=== PATIENT | male | born 1960 | race Caucasian/White ===

== ENCOUNTER 2022-09-26 03:00 | Inpatient (IN) | payer OTHER, SELFPAY ==
[2022-09-26] VITALS (13 sets, daily range): BP systolic 121–190; BP diastolic 72–103; PULSE 64–85; RESP 16–22; TEMP 36.3–36.9; O2SAT 90–99; BMI 37.5
--- NOTE | 2022-09-26 03:05 | XRR_ITS ---
PROCEDURE INFORMATION: Exam: XR Right Foot Exam date and time: 09/26/2022 3:11 AM Age: 62 years old Clinical indication: Injury or trauma; Work related; Crushing; Toes; Right lesser toe(s); Patient HX: Patient sustained a crush injury to digits of RT foot from a pallet christina. TECHNIQUE: Imaging protocol: Radiologic exam of the Right foot. Views: 3 or more views. AP Oblique Lateral COMPARISON: No relevant prior studies available. FINDINGS: Bones/joints: Comminuted right 3rd toe distal phalanx tuft region fracture is seen with 0.2 cm distraction of the fracture fragments and 0.2 cm proximal displacement. There is associated adjacent soft tissue irregularity and swelling. Recommend correlation with clinical findings of open fracture. Mild toe interphalangeal joint and 1st metatarsophalangeal joint space narrowing, suggestive of osteoarthritic change. Soft tissues: No radiopaque foreign bodies. Notes: If there is further concern, recommend follow-up radiographs or MRI for complete assessment. XR/XR foot RT min 3V* [id number] IMPRESSION: Comminuted, mildly displaced right 3rd toe distal phalanx tuft region fracture, as noted above. Associated adjacent soft tissue irregularity and swelling. Recommend correlation with clinical findings of open fracture.
--- NOTE | 2022-09-26 03:24 | W.ED.TRAUMA ---
HPI - Trauma General: Chief Complaint: Trauma Stated Complaint: CRUSHED TOE Time Seen by Provider: 09/26/22 03:00 Source: patient and EMS Mode of arrival: EMS Limitations: no limitations History of Present Illness: 62-year-old male who is here patient states he was working tonight at [facility] [employer] and had a large 4 pellet device run over his right foot. He does have a large laceration to the underside of his right middle toe with likely fracture patient was given Ancef in route patient does have neuropathy he denies any pain currently. Associated symptoms: Denies abdominal pain, back pain, chest pain, chills, dental pain, fever(s), headache(s), nausea or vomiting Review of Systems Const: Denies: fever(s), chills, body aches or change in appetite Eyes: Denies: blurry vision or eye discomfort ENMT: Denies: throat pain or dental pain Card: Denies: chest pain Resp: Denies: dyspnea GI: Denies: abdominal pain, nausea, vomiting or diarrhea : Denies: dysuria Musc: Denies: neck pain or back pain Skin/Breast: Denies: rash Neuro: Denies: headache(s) Psych: Denies: depression Bong/Lymph: Denies: easy bruising All/Imm: Denies: urticaria PFSH ED PFSH: Medical History (Updated 09/26/22 @ 03:39 by Kindra Jain MD) Diabetes Social History (Updated 09/26/22 @ 03:34 by Kindra Jain MD) Substance/Drug Use: never Physical Exam Const: COMMON NORMALS: no acute distress, patient oriented x3 and healthy appearing HENMT: COMMON NORMALS: normocephalic and atraumatic HEAD & SCALP: normocephalic and atraumatic Eye: COMMON NORMALS: Equal, round and reactive pupils present and EOMs intact bilaterally PUPIL: Yes Equal, round and reactive pupils present Neck/C-Spine: COMMON NORMALS: full ROM and supple Chest: COMMONS NORMALS: normal inspection of the chest and normal palpation of entire chest wall Resp: COMMON NORMALS: normal respiratory effort, No retractions, No use of accessory muscles and clear to auscultation bilaterally AUSCULTATION: clear to auscultation bilaterally Cardio: COMMON NORMALS: regular rate, regular rhythm and No murmurs present (Cardio) RATE: regular rate RHYTHM: regular rhythm GI: COMMON NORMALS: Normal to inspection, nondistended, normoactive bowel sounds present, Soft to palpation, non-tender and no masses PALPATION: Yes Soft to palpation Extremity: NARRATIVE EXTREMITY EXAM: Large U shaped fracture to right middle toe with exposed bone Neuro: COMMON NORMALS: patient oriented x3, moves all extremities and no focal motor deficits Psych: COMMON NORMALS: mental status grossly normal, Normal thought process present and cooperative THOUGHT PROCESS: Normal thought process present Skin: COMMON NORMALS: no rashes or lesions noted and no wounds GENERAL SKIN EXAM: no rashes or lesions noted Course Vital Signs: Vital signs: Vital Signs Temperature 98 F 09/26/22 03:01 Pulse Rate 74 09/26/22 03:01 Respiratory Rate 16 09/26/22 03:01 Blood Pressure 181/103 09/26/22 03:01 Pulse Oximetry 90 09/26/22 03:01 Oxygen Delivery Me thod 09/26/22 03:01 MDM - Trauma Medical Decision Making Patient presents with right middle toe fracture that is open I did speak to podiatry who recommended admission and patient already received IV antibiotics he can take him to the OR in the morning to irrigate Discharge Plan Discharge Patient Disposition: Admitted As Inpatient Clinical Impression: Open fracture of toe Condition: Stable Referrals: Pñea Bell DO [Primary Care Provider] - Coding Level of Care Code ED Shop Lead for Audie Santizo
[2022-09-26 03:43] LABS: Basophils % 0.5 %; Eosinophils # 0.2 10^3/uL (0.0-0.8); Eosinophils % 3.1 %; Hematocrit 41.3 % (42.0-52.0); Hemoglobin 13.8 g/dL (11.7-16.6); Lymphocytes # 1.2 10^3/uL (0.8-4.8); Lymphocytes % 18.6 %; Mean Corpuscular HGB Conc 33.4 g/dL (30.0-36.0); Mean Corpuscular Hemoglobin 30.1 pg (28.0-34.0); Mean Platelet Volume 10.8 fL (7.4-10.4); Monocytes # 0.6 10^3/uL (0.2-0.9); Monocytes % 8.6 %; Neutrophils # 4.47 10^3/uL (1.8-7.7); Neutrophils % 68.9 %; Nucleated Red Blood Cells % 0 %; Platelet Count 233 10^3/cmm (130-400); Red Blood Count 4.59 10^6/uL (4.1-5.3); Red Cell Distribution Width 13.1 % (12.1-15.1); White Blood Count 6.5 10^3/uL (4.0-10.0)
[2022-09-26 04:14] LABS: Anion Gap 14.3 (5-19); Blood Urea Nitrogen 12 mg/dL (8-23); Calcium 8.7 mg/dL (8.5-10.5); Carbon Dioxide 24 mmol/L (22-29); Chloride 102 mmol/L (98-107); Glomerular Filtration Rate 85.8 mL/min (90-130); Glucose 369 mg/dL (65-115); Osmolality Calculated 297 mOsm/kg (285-295); Potassium 4.3 mmol/L (3.5-5.1); Sodium 136 mmol/L (136-145)
--- NOTE | 2022-09-26 06:06 | P.CONIM_ITS ---
Providers/Reason For Consult Consulting Physician/Specialty*: Jimbo Monahan D.P.M. Reason for Consult*: Open fracture right third toe Attending Physician: Marina Macario MD Primary Care Provider: Peña Bell DO History of Present Illness History of Present Illness Ricky Fields is a 62 year old male who presented to the emergency department with an open fracture to his right third toe. Approximately 130 this morning while working at [employer] a pallet of beverages landed on his right third toe degloving the plantar tuft with exposed tendon and bone and a comminuted fracture of the distal phalanx. Patient is diabetic. He does not follow-up with a primary care physician. Has not taken medications for the past 2 years. He has significant peripheral neuropathy, denies any pain at this time to the right foot. Denies any other concomitant injuries. Patient denies any subje ctive nausea, vomiting, fever, chills, shortness of breath or chest pain. Review of Systems General: Reports: 10 or more systems reviewed and unremarkable except in HPI and below Const: Denies: fever(s) or chills Eyes: Denies: change in vision Card: Denies: chest pain or palpitations Resp: Denies: dyspnea or productive cough GI: Denies: abdominal pain, nausea or vomiting : Denies: flank pain Musc: Reports: extremity swelling, joint stiffness and deformity Skin/Breast: Reports: erythema, sores, changes in skin color, dry skin, nail changes and change in hair Neuro: Reports: numbness in extremities, sensory changes and difficulty walking Psych: Denies: suicidal ideation Endo: Denies: change in body appearance Bong/Lymph: Denies: tender lymph nodes Medications/Allergies Home Medications Medication Instructions Recorded Confirmed Last Taken Type No Known Home Medications 09/26/22 09/26/22 Unknown History Allergies Allergy/AdvReac Type Severity Reaction Status Date / Time No Known Allergies Allergy Verified 09/26/22 04:29 PFSH Acute PFSH: Medical History (Updated 09/26/22 @ 06:28 by Jimbo Monahan DPM) Diabetes Social History (Updated 09/26/22 @ 03:34 by Kindra Jain MD) Substance/Drug Use: never Vitals/I&O/Wt Last Vital Signs Temp 97.4 F L 09/26/22 05:23 Pulse 68 09/26/22 05:23 Resp 22 H 09/26/22 05:23 BP 162/95 09/26/22 05:23 Pulse Ox 95 09/26/22 05:23 O2 Del Method 09/26/22 05:23 Weight last 48 hrs Weight 306 lb 6.4 oz Weight 300 lb Physical Exam Narrative: GENERAL: Patient is alert and oriented ?3 and in no acute distress. The following is a focused bilateral lower extremity exam. VASCULAR: Dorsalis pedis palpable +2 left and right foot. Posterior tibial arteries +2. Capillary refill time less than 3 seconds to the distal hallux bilaterally. Delayed capillary refill to the right third toe at 5 seconds. Calf is supple and nontender proximally and distally. Pedal hair growth present. NEUROLOGICAL: Protective sensation intact 0/10 sites, tested with [place] monofilament to bilateral feet. DERMATOLOGICAL: Degloving of the plantar tuft right third toe with exposed tendon and bone. MUSCULOSKELETAL: Able to dorsiflex and plantarflex all toes of the right foot. Tenderness to palpation of right third toe. Crush injury to the right third toe. CARDIOVASCULAR: S1, S2, normal rate, normal rhythm. Dorsalis pedis and posterior tibial arteries palpable. LUNGS: Clear to auscltation, no use of acessory muscles, no crackles or wheezes. Data 09/26/22 03:38 09/26/22 03:38 A&P Assessment and plan (1) Open fracture of toe: Qualifiers: Encounter type: initial encounter Fracture alignment: nondisplaced Laterality: right Phalanx: distal Toe: lesser toe Qualified Code(s): S92.534B - Nondisplaced fracture of distal phalanx of right lesser toe(s), initial encounter for open fracture (2) Diabetic peripheral neuropathy associated with type 2 diabetes mellitus: (3) Crushing injury of toe with foot, right: Qualifiers: Encounter type: initial encounter Qualified Code(s): S97.81XA - Crushing injury of right foot, initial encounter; S97.101A - Crushing injury of unspecified right toe(s), initial encounter Plan Ricky Fields is a 62 year old male who presented to the emergency department with an open fracture to his right third toe. Approximately 1:38 AM this morning while working at [employer] a pallet of beverages landed on his right third toe degloving the plantar tuft with exposed tendon and bone and a comminuted fracture of the distal phalanx. X-ray right foot shows comminuted fracture of the distal phalanx right third toe. No obvious foreign body, no soft tissue of emphysema. Patient examined and evaluated, findings and treatment options were discussed with patient at length. I recommended surgical exploration of the wound, irrigation and primary repair, he has exposed tendon and bone and is at high risk for neurovascular injury. Patient is agreeable. He is NPO. Planning on primary laceration repair this morning at 9:00 AM. Risks include pain, bleeding, numbness, infection, soft tissue necrosis, vascular insult resulting in gangrenous changes of the right third toe, loss of function of the right third toe, chronic edema to the right third toe and ultimately at risk for amputation of the right third toe. Patient is agreeable wishes to proceed 09/26/2022 laceration repair right third toe. jerod GIMENEZ, supine, 30 minutes. Consult Attestations Medical Necessity Statement: (Sugar right third toe Coding Level of Care Code Acute Code for Chg Fwd Diagnoses Open fracture of toe S92.534B Encounter type: initial encounter Fracture alignment: nondisplaced Laterality: right Phalanx: distal Toe: lesser toe Diabetic peripheral neuropathy associated with type 2 diabetes mellitus E11.42 Crushing injury of toe with foot, right S97.81XA; S97.101A Encounter type: initial encounter
[2022-09-26 06:27] LABS: Glucose Point of Care 311 mg/dL (70-110)
--- NOTE | 2022-09-26 06:27 | PC.NURSE ---
Pt referred for review of admission w/CBG of 311. Will await orders.
[2022-09-26 07:12] LABS: Chol HDL Ratio 4.42 mg/dL (1.0-5.00); Cholesterol 146 mg/dL (0-200); HDL Cholesterol 33 mg/dL (60-100); LDL Cholesterol Calculated 65 mg/dL (50-129); LDL HDL Ratio 1.97 RATIO (0.00-3.22); Triglycerides 239 mg/dL (0-150)
[2022-09-26 07:23] LABS: Estmated Average Glucose 278; Hemoglobin A1C 11.3 % (4.0-6.0)
[2022-09-26] MEDS: enoxaparin 40 mg/0.4 mL Syringe SUBCUT (08:03)
[2022-09-26] MEDS: hyDRALAzine 20 mg/mL INJ 1 mL 5 MG IVP (08:03)
--- NOTE | 2022-09-26 08:08 | P.HP_ITS ---
Providers/Chief Complaint Admitting Physician: Marina Macario MD Primary Care Provider: Peña Bell DO Chief Complaint: CRUSHED TOE History of Present Illness Ricky Fields is a 62 year old male with PMH HTN, DM, does not take any treatment presenting with crush injury to his foot while at [facility] when a pallet of beverages landed on his right third toe degloving the plantar tuft with exposed tendon and bone and a comminuted fracture of the distal phalanx. No other injuries noted. X ray of the foot Comminuted, mildly displaced right 3rd toe distal phalanx tuft region fracture. he is planned for surgical repiar with podiatry. Hospitalist called for admission in view of other medical comorbidities. Denies current chest pain, dyspnea, palpitations, syncope Review of Systems General: Reports: 10 or more systems reviewed and unremarkable except in HPI and below Const: Denies: fever(s), chills or body aches Eyes: Denies: change in vision, blurry vision or photophobia ENMT: Reports: hoarseness; Denies: throat pain, enlarged tonsils, odynophagia or nasal congestion Card: Denies: chest pain, palpitations, irregular heart rhythm, edema, swelling of feet/ankles, lightheadedness, pre-syncope, dyspnea on exertion or orthopnea Resp: Denies: dyspnea, productive cough, non-productive cough, wheezing, stridor, pain on inspiration, change in phlegm color, hemoptysis or chest congestion GI: Denies: abdominal pain, nausea, vomiting, hematemesis, coffee ground emesis, dysphagia, heartburn, diarrhea, constipation, GI cramping, change in stool character, hematochezia or melena : Denies: flank pain, dysuria, urinary frequency, urinary urgency, urinary hesitancy or hematuria Musc: Denies: neck pain, back pain, extremity pain, joint swelling, joint warmth or deformity Neuro: Denies: headache(s), numbness in extremities, weakness in extremities, sensory changes, difficulty walking, frequent falls, dizziness, vertigo, behavioral changes, Slurred speech present or seizure-like activity Psych: Denies: anxiety, depression, suicidal ideation or homicidal ideation Endo: Denies: polyuria, polydipsia, tired all the time, cold intolerance or hot flashes Bong/Lymph: Denies: easy bruising or easy bleeding Medications/Allergies Home Medications Medication Instructions Recorded Confirmed Last Taken Type No Known Home Medications 09/26/22 09/26/22 Unknown History Allergies Allergy/AdvReac Type Severity Reaction Status Date / Time No Known Allergies Allergy Verified 09/26/22 04:29 PFSH Acute PFSH: Medical History Diabetes Social History Substance/Drug Use: never Vitals/I&O/Wt Last Vital Signs Temp 97.4 F L 09/26/22 05:23 Pulse 68 09/26/22 05:23 Resp 22 H 09/26/22 05:23 BP 162/95 09/26/22 05:23 Pulse Ox 95 09/26/22 05:23 O2 Del Method 09/26/22 05:23 Weight last 48 hrs Weight 138.981 kg Weight 136.078 kg Physical Exam Narrative: General: No acute distress, AO x3 HEENT: PERRLA, pupils bilaterally equal and reactive, pallors not present Chest: Normal vesicular breath sounds, no added sounds, equal good air entry bilaterally CVS: S1-S2 regular, no murmurs, no tachycardia, no gallops, no rubs Abdomen: Soft, nontender, no organomegaly, bowel sounds present Neuro: No focal deficits, no facial deformity, AO x3, power 5/5 in all limbs Ext: foot exam : see podiatry note Data 09/26/22 03:38 09/26/22 03:38 A&P Assessment and plan (1) Crushing injury of toe with foot, right: planned for surgical repair with podiatry today NPO for procedure prn morphine for pain control Qualifiers: Encounter type: initial encounter Qualified Code(s): S97.81XA - Crushing injury of right foot, initial encounter; S97.101A - Crushing injury of unspecified right toe(s), initial encounter (2) Diabetes: Blood sugar > 350 no signs of DKA start insulin mild sliding scale as insulin naive Check Hba1c, based on A1c, can adjust insulin requirements check lipid panel (3) Hypertension: hydralazine 5mg ivp q4h prn started while NPO Based on BP trend in the hospital, can start oral antihypertensives Attestations Medical Necessity Statement*: > 2 midnight admission anticipated for crush injury, surgical repair , dm manegment Coding Level of Care Code Acute Code for Chg Fwd Diagnoses Crushing injury of toe with foot, right S97.81XA; S97.101A Encounter type: initial encounter Diabetes E11.9 Hypertension I10
[2022-09-26] MEDS: insulin lispro 100 unit/1 mL SUBCUT ×4 (08:09→22:15)
[2022-09-26] MEDS: sodium chloride 0.9% 1,000 ML 75 ML IV ×2 (08:09→17:51)
[2022-09-26 08:52] LABS: Glucose Point of Care 248 mg/dL (70-110)
--- NOTE | 2022-09-26 08:53 | P.ANESASSM_ITS ---
Pre-Anesthetic Assessment Height/Weight: Height 1.91 m Weight 138.981 kg Temp Pulse Resp BP Pulse Ox O2 Del Method 97.7 F 71 18 190/101 98 09/26/22 08:46 09/26/22 08:46 09/26/22 08:46 09/26/22 08:46 09/26/22 08:46 09/26/22 08:46 Operation Date: 09/26/22 09:30 Proposed Procedures p ORIF Metatarsal right 3rd toe(Right) - Jimbo Monahan DPM s Incision And Drainage with lac repair(Right) - Jimbo Monahan DPM Familial anesthetic complications: NOne Was Beta Moisés taken within 24 hours: N/A Was Clonidine taken within 24 hours: N/A Last intake: Intake Last Liquid Date 09/25/22 Last Liquid Time 23:00 Last Solid Date 09/25/22 Last Solid Time 23:00 Social No alcohol and No tobacco fromer smoker Exam alert, oriented x 3, clear to auscultation bilaterally and regular rate & rhythm Airway Mallampati: Class III Dentition: loose and other (multiple missing) CV/HEM Hypertension able to achieve 4 METS without angina or SOB Metabolic Diabetes Mellitus and Morbid Obesity Anesthetic Plan ASA status: 2 Anesthesia: MAC Risk of > 500 ml blood loss (7ml/kg in children): No Medications/Allergies Home Medications Medication Instructions Recorded Confirmed Last Taken Type No Known Home Medications 09/26/22 09/26/22 Unknown History Allergies Allergy/AdvReac Type Severity Reaction Status Date / Time No Known Allergies Allergy Verified 09/26/22 04:29 Current Medications Generic Name Dose Route Start Last Admin Trade Name Hector PRN Reason Stop Dose Admin Enoxaparin Sodium 40 mg 09/26/22 06:45 09/26/22 08:03 Enoxaparin 40 Mg/0.4 Ml Syringe SUBCUT 40 mg Q24H ADENIKE Administration Sodium Chloride 1,000 mls @ 75 mls/hr 09/26/22 06:45 09/26/22 08:09 Sodium Chloride 0.9% IV 75 mls/hr .[id number] ADENIKE Administration Insulin Human Lispro 0 unit 09/26/22 08:00 09/26/22 08:09 Insulin Lispro 100 Unit/1 Ml SUBCUT 5 unit WM&BEDTIME ADENIKE Administration Protocol [facility] Anesthesia Medical History Diabetes Social History Substance/Drug Use: never Data Anesthesia 09/26/22 03:38 09/26/22 03:38 Short CBC 09/26/22 Range/Units 03:38 WBC 6.5 (4.0-10.0) 10^3/uL Hgb 13.8 (11.7-16.6) g/dL Hct 41.3 L (42.0-52.0) % MCV 90.0 (80-94) fl Plt Count 233 (130-400) 10^3/cmm Neut % (Auto) 68.9 % Neut # (Auto) 4.47 (1.8-7.7) 10^3/uL BMP 09/26/22 03:38 Sodium 136 Potassium 4.3 Chloride 102 Carbon Dioxide 24 BUN 12 Creatinine 0.9 Glucose 369 H Calcium 8.7 Cardiac Studies: No Data to Display
--- NOTE | 2022-09-26 09:02 | USCV_ITS ---
Ricky Fields Age: 62 Gender: M : 1960 Exam Date: 09/26/2022 13:02 Ordering Phys: Ren Evans MD Technologist: Poncho Arriaga [place] [facility] [place]ication: uncontroled htn BP: 135 / 72 HR: 126 Rhythm: Sinus Technical Quality: Adequate MEASUREMENTS (Male / Female) Normal Values 2D ECHO LV Diastolic Diameter PLAX 6.1 cm 4.2 - 5.9 / 3.9 - 5.3 cm LV Systolic Diameter PLAX 3.8 cm IVS Diastolic Thickness 0.9 cm 0.6 - 1.0 / 0.6 - 0.9 cm IVS Systolic Thickness 1.6 cm LVPW Diastolic Thickness 1.3 cm 0.6 - 1.0 / 0.6 - 0.9 cm LVPW Systolic Thickness 1.6 cm LVOT Diameter 2.5 cm LV Ejection Fraction 2D Teich 67.4 % LV Ejection Fraction MOD 2C 69.2 % LV Ejection Fraction 2C AL 71.2 % LA Diameter 4.3 cm Aorta at Sinotubular Diameter 2.7 cm IVC Diameter 1.6 cm M-MODE Aortic Annulus Diameter 2.4 cm LA Ao Ratio MM 1.1 MV E Point Septal Separation 1.1 cm DOPPLER AV Peak Velocity 152.0 cm/s LVOT Peak Velocity 119.0 cm/s AV Area Cont Eq vti 3.8 cm squared AV Area Cont Eq pk 3.7 cm squared MV Area PHT 5.0 cm squared Mitral E to A Ratio 0.7 MV E' Velocity 45.0 cm/s Mitral E to MV E' Ratio 8.4 Mitral E to LV E' Lateral Ratio 7.8 Mitral E to LV E' Septal Ratio 9.2 TR Peak Velocity 203.3 cm/s TR Peak Gradient 16.5 mmHg TV Peak E Velocity 69.0 cm/s Right Atrial Pressure 3.0 mmHg Pulmonary Artery Systolic Pressu 19.5 mmHg RV Acceleration Time 0.1 s FINDINGS Left Ventricle Normal left ventricular size, systolic function and wall thickness, with no regional wall motion abnormalities. Left ventricular ejection fraction is estimated at 65 %. Normal diastolic function. Right Ventricle Normal right ventricular size and systolic function. Right ventricular systolic pressure 19.5 mmHg. Right Atrium Normal right atrial size. Left Atrium Normal left atrial size. Mitral Valve Structurally normal mitral valve. No mitral valve stenosis. Trace mitral valve regurgitation. Aortic Valve Structurally normal trileaflet aortic valve. No aortic valve stenosis. No aortic valve regurgitation. Tricuspid Valve Structurally normal tricuspid valve. No tricuspid valve stenosis. Trace to mild tricuspid valve regurgitation. Pulmonic Valve Structurally normal pulmonic valve. Pericardium No pericardial effusion. Aorta Normal size aortic root and proximal ascending aorta. IVC Normal IVC dimension with >50% respiratory change of the inferior vena cava. CONCLUSIONS 1. Normal left ventricular size, systolic function and wall thickness, with no regional wall motion abnormalities. Left ventricular ejection fraction is estimated at 65 %. Normal diastolic function. 2. No significant valvular abnormality. 3. No prior similar studies to compare. Monae Bowers MD (Electronically Signed) Final Date: 26 September 2022 18:19 S
--- NOTE | 2022-09-26 09:23 | W.PM.OPSUD ---
Surgery/Procedure H&P Update DATE OF PROCEDURE: September 26, 2022 DATE H&P PERFORMED: 09/26/22 CHANGES TO PREVIOUS DOCUMENTATION: none PLANNED PROCEDURE: Operation Date: 09/26/22 09:30 Proposed Procedures p ORIF Metatarsal right 3rd toe(Right) - Jimbo Monahan DPM s Incision And Drainage with lac repair(Right) - Jimbo Monahan DPM
[2022-09-26] MEDS: ceFAZolin 3,000 MG in sodium chloride 0.9% (100 ml) 100 ML 200 MG IV (09:50)
[2022-09-26 09:55] LABS: Thyroid Stimulating Hormone 3.41 uIU/mL (0.27-4.20)
[2022-09-26 10:03] LABS: Folate Level 5.6 ng/mL (4.5-32.2)
[2022-09-26 10:05] LABS: Procalcitonin 0.06 ng/mL (0-0.5); Vitamin B12 353 pg/mL (232-1245)
[2022-09-26] MEDS: lidocaine 2% INJ 20 mL INJECTION (10:13)
[2022-09-26 10:15] LABS: Iron 37 ug/dL (59-158); Percent Saturation 14.9 % (20-50); Total Iron Binding Capacity 248 mcg/dl; Unsaturated Iron Binding 211 ug/dL (112-347)
--- NOTE | 2022-09-26 10:39 | P.OP_ITS ---
Operative Report Date of procedure: September 26, 2022 Pre-op diagnosis: Laceration with open fracture, right third toe. Post-op diagnosis: Same Post-op findings: Crush injury with comminuted fracture and laceration exposed tendon and bone right third toe. Procedure done: Complex repair full-thickness laceration down to bone right third toe. CPT code 25558. Implants: 4-0 nylon Specimens removed/disposition: None Surgeon: Jimbo Monahan D.P.M. Economic Analyst: Amalia Estimated blood loss: 5 14 IV fluids: None Urine output: None Complications: None Findings: Exposed tendon and bone with laceration that is circumferentially from medial lateral at the right third toe plantar tuft Brief History: Ricky Fields is a 62 year old male who presented to the emergency department with an open fracture to his right third toe.? Approximately 1:38 AM this morning while working at [employer] a pallet of beverages landed on his right third toe degloving the plantar tuft with exposed tendon and bone and a comminuted fracture of the distal phalanx. X-ray right foot shows comminuted fracture of the distal phalanx right third toe.? No obvious foreign body, no soft tissue of emphysema. Patient examined and evaluated, findings and treatment options were discussed with patient at length.? I recommended surgical exploration of the wound, irrigation and primary repair, he has exposed tendon and bone and is at high risk for neurovascular injury.? Patient is agreeable.? He is NPO.? Planning on primary laceration repair this morning at 9:00 AM.? Risks include pain, bleeding, numbness, infection, soft tissue necrosis, vascular insult resulting in gangrenous changes of the right third toe, loss of function of the right third toe, chronic edema to the right third toe and ultimately at risk for amputation of the right third toe.? Patient is agreeable wishes to proceed Procedure: Under mild sedation the patient was brought to the operating room and remained on the gurney in supine position. A timeout was performed. Anesthesia was then administered by the anesthesia service. Local anesthesia was then injected by myself consisting of one-to-one mixture 1% lidocaine and 0.5% Marcaine plain total of 20 cc and a right third ray block fashion. A well-padded pneumatic tourniquet was applied to the right ankle. The right lower extremity was then scrubbed, prepped and draped utilizing normal aseptic technique. Attention was directed to the right third toe where plantar degloving was appreciated with exposed tendon and bone. Skin flap was then tacked dorsally at the 2 o'clock position and 10 o'clock position and circumferentially planters of this was complete degloving with exposed deep structures. Flexor tendon was intact. Comminuted fracture of the distal phalanx tuft of the right third toe appreciated and small bony fragments were irrigated out, copious amounts of sterile saline solution were gently irrigated into the laceration followed by repair directly utilizing 4-0 nylon circumferentially around the laceration. Tourniquet was deflated and cap refill was appreciated at the degloving site postrepair there was still delayed at 5 seconds compared to adjacent digits at 3 seconds. Dressings consisting of Adaptic, sterile 4 x 4's, Kerlix and Romain wrap were applied to the right foot. Patient tolerated the procedure and anesthesia well and was transferred to the PACU with vital signs stable and vascular status intact. Following a period of postoperative monitoring was transferred back to the floor. Plan for 3 doses of cephalosporin for open fracture. Offloading with cam boot, may heel touch for transfers otherwise rest and elevate his right foot
[2022-09-26] MEDS: amlodipine 5 mg Tablet PO (12:00)
[2022-09-26 12:03] LABS: Glucose Point of Care 235 mg/dL (70-110)
--- NOTE | 2022-09-26 12:29 | PM.MISC ---
Miscellaneous Note Purpose of Documentation: Transition of care note Note: Admitted overnight. Appreciate H&P and lab results. Patient in OR currently. Undiagnosed diabetic and hypertensive. Plan: Goal blood pressure less than 140/90 mmHg. Check echocardiogram. Check A1c, lipid panel. Start on atorvastatin 40 mg oral daily. Check iron panel, vitamin B12, folate levels. Check TSH. Start on Coreg 3.125 twice daily, amlodipine 5 mg oral daily. Will uptitrate as per blood pressure goals. Physical therapy, pain medication, anticoagulation as per surgical team.
[2022-09-26 16:31] LABS: Glucose Point of Care 198 mg/dL (70-110)
[2022-09-26] MEDS: carvedilol 3.125 mg Tablet PO (17:50)
[2022-09-26] MEDS: morphine 4 mg/mL SDV 1 mL 2 MG IVP (17:55)
[2022-09-26] MEDS: vancomycin 1,500 MG/300 ML PIGGYBACK 200 MG IV (20:23)
[2022-09-26] MEDS: atorvastatin 40 mg Tablet 20 MG PO (20:27)
[2022-09-26 20:54] LABS: Glucose Point of Care 303 mg/dL (70-110)
[2022-09-26] MEDS: piperacillin-tazobactam 3.375 GM in sodium chloride 0.9% (plus) 50 ML IV (22:16)
[2022-09-27] VITALS: BP 161/81; PULSE 76; RESP 23; TEMP 36.8; O2SAT 93
[2022-09-27 00:58] VITALS: BP 142/72
[2022-09-27] MEDS: vancomycin 1,500 MG/300 ML PIGGYBACK 200 MG IV (03:55)
[2022-09-27 04:00] VITALS: BP 147/77; PULSE 73; RESP 20; TEMP 36.9; O2SAT 92
[2022-09-27 05:07] LABS: Basophils % 0.4 %; Eosinophils # 0.2 10^3/uL (0.0-0.8); Eosinophils % 3.4 %; Hemoglobin 13.6 g/dL (11.7-16.6); Lymphocytes # 1.2 10^3/uL (0.8-4.8); Lymphocytes % 17.7 %; Mean Corpuscular HGB Conc 33.2 g/dL (30.0-36.0); Mean Corpuscular Hemoglobin 30.1 pg (28.0-34.0); Mean Corpuscular Volume 90.7 fl (80-94); Mean Platelet Volume 11.1 fL (7.4-10.4); Monocytes # 0.7 10^3/uL (0.2-0.9); Monocytes % 10.3 %; Neutrophils # 4.74 10^3/uL (1.8-7.7); Neutrophils % 67.9 %; Nucleated Red Blood Cells % 0 %; Platelet Count 229 10^3/cmm (130-400); Red Blood Count 4.52 10^6/uL (4.1-5.3); Red Cell Distribution Width 13.2 % (12.1-15.1)
[2022-09-27 05:40] LABS: Alanine Aminotransferase 15 U/L (0-41); Albumin Level 3.4 g/dL (3.5-5.2); Alkaline Phosphatase 116 U/L (40-130); Anion Gap 12.1 (5-19); Aspartate Amino Transferase 12 U/L (0-40); Blood Urea Nitrogen 9 mg/dL (8-23); Calcium 8.2 mg/dL (8.5-10.5); Carbon Dioxide 25 mmol/L (22-29); Chloride 104 mmol/L (98-107); Globulin 2.7 g/dL (1.3-4.6); Glomerular Filtration Rate 114.6 mL/min (90-130); Glucose 239 mg/dL (65-115); Magnesium 1.7 mg/dL (1.7-2.3); Osmolality Calculated 290 mOsm/kg (285-295); Potassium 4.1 mmol/L (3.5-5.1); Sodium 137 mmol/L (136-145); Total Bilirubin 0.6 mg/dL (0.15-1.2); Total Protein 6.1 g/dL (6.6-8.7)
[2022-09-27] MEDS: piperacillin-tazobactam 3.375 GM in sodium chloride 0.9% (plus) 50 ML IV (06:01)
[2022-09-27] MEDS: enoxaparin 40 mg/0.4 mL Syringe SUBCUT (06:02)
[2022-09-27] MEDS: sodium chloride 0.9% 1,000 ML 75 ML IV (06:02)
--- NOTE | 2022-09-27 06:06 | P.PN_ITS ---
Subjective Subjective: Patient seen bedside. He is 1 day status post irrigation and debridement with primary closure of laceration right third toe that was exposed bone and tendon with comminuted fracture of the distal phalanx right third toe. Denies any acute events overnight. Minimal pain to the right foot. No str ikethrough bleeding at his dressings. Patient denies any subjective nausea, vomiting, fever, chills, shortness of breath or chest pain. Vitals/I&O/Wt Last Vital Signs Temp 98.5 F 09/27/22 04:00 Pulse 73 09/27/22 04:00 Resp 20 H 09/27/22 04:00 BP 147/77 09/27/22 04:00 Pulse Ox 92 09/27/22 04:00 O2 Del Method 09/26/22 15:41 O2 Flow Rate 6 09/26/22 10:30 09/26/22 09/26/22 09/27/22 14:59 22:59 06:59 Intake Total 390 / 390 1507.5 / 1897.5 50 / 1947.5 Output Total 0 / 0 500 / 500 980 / 1480 Balance 390 / 390 1007.5 / 1397.5 -930 / 467.5 Weight last 48 hrs Weight 306 lb 6.4 oz Weight 300 lb Physical Exam Narrative: GENERAL: Patient is alert and oriented ?3 and in no acute distress. The following is a focused bilateral lower extremity exam. VASCULAR: Dorsalis pedis palpable +2 left and right foot. Posterior tibial arteries +2. Capillary refill time less than 3 seconds to the distal hallux bilaterally. Delayed capillary refill to the right third toe at 5 seconds. Calf is supple and nontender proximally and distally. Pedal hair growth present. NEUROLOGICAL: Protective sensation intact 0/10 sites, tested with [place] ein monofilament to bilateral feet. DERMATOLOGICAL: Surgical dressings are clean, dry and intact, no strikethrough bleeding. At the level ankle there is no erythema or warmth. MUSCULOSKELETAL: Able to dorsiflex and plantarflex all toes of the right foot. Tenderness to palpation of right third toe. No pain with posterior calf squeeze. Data 09/27/22 04:15 09/27/22 04:15 A&P Assessment and plan (1) Open fracture of toe: Qualifiers: Encounter type: subsequent encounter Fracture alignment: nondisplaced Laterality: right Phalanx: distal Toe: lesser toe Fracture healing: with routine healing Qualified Code(s): S92.534D - Nondisplaced fracture of distal phalanx of right lesser toe(s), subsequent encounter for fracture with routine healing (2) Diabetic peripheral neuropathy associated with type 2 diabetes mellitus: (3) Crushing injury of toe with foot, right: Qualifiers: Encounter type: subsequent encounter Qualified Code(s): S97.81XD - Crushing injury of right foot, subsequent encounter; S97.101D - Crushing injury of unspecified right toe(s), subsequent encounter Plan Ricky Fields is a 62 year old male who presented to the emergency department with an open fracture to his right third toe. Approximately 1:38 AM this morning while working at [employer] a pallet of beverages landed on his right third toe degloving the plantar tuft with exposed tendon and bone and a comminuted fracture of the distal phalanx. 1 day status post closure of complicated laceration right third toe exposed tendon and bone. Date of operation 09/26/2022 Patient is doing well postoperatively, pain is minimal secondary to neuropathy. Surgical dressings are clean and intact without strikethrough. Receiving IV antibiotics. He is ready for discharge home from podiatry standpoint. No further plans for surgical intervention during this hospitalization. Infection appears to be well controlled, moving forward my biggest concern is vascular insult and potential for necrosis and infection. Planning on extended coverage with oral antibiotics on discharge for 2 weeks. Will follow-up in podiatry clinic 10/03/2022 at 4 PM. He is to keep his surgical dressing clean, dry and intact until his follow-up visit October 03. He is elevate his right foot while resting. When ambulating he may heel touch only for transfers with a cam boot for offloading. Attestations Medical Necessity Statement*: Open fracture Coding Level of Care Code Acute Code for [facility] Fwd Diagnoses Open fracture of toe S92.534D Encounter type: subsequent encounter Fracture alignment: nondisplaced Laterality: right Phalanx: distal Toe: lesser toe Fracture healing: with routine healing Diabetic peripheral neuropathy associated with type 2 diabetes mellitus E11.42 Crushing injury of toe with foot, right S97.81XD; S97.101D Encounter type: subsequent encounter
[2022-09-27 06:43] LABS: Glucose Point of Care 274 mg/dL (70-110)
[2022-09-27 07:59] VITALS: BP 151/78; PULSE 71; RESP 18; TEMP 36.8; O2SAT 91
[2022-09-27] MEDS: insulin lispro 100 unit/1 mL SUBCUT (08:45)
[2022-09-27] MEDS: carvedilol 3.125 mg Tablet PO (08:46)
[2022-09-27] MEDS: amlodipine 5 mg Tablet PO (08:46)
--- NOTE | 2022-09-27 09:22 | P.DS_ITS ---
Discharge Providers Date of Admission: 09/26/22 03:32 Date of Discharge: September 27, 2022 Attending Provider at Admission: Marina Macario MD Attending Provider at Discharge: Ren Evans MD Consults: Podiatry: Dr. Monahan Primary Care Provider: Peña Bell DO Diagnoses at Discharge Discharge Diagnosis (1) Open fracture of toe: Status: Acute Qualifiers: Encounter type: subsequent encounter Fracture alignment: nondisplaced Fracture healing: with routine healing Laterality: right Phalanx: distal Toe: lesser toe Qualified Code(s): S92.534D - Nondisplaced fracture of distal phalanx of right lesser toe(s), subsequent encounter for fracture with routine healing (2) Diabetic peripheral neuropathy associated with type 2 diabetes mellitus: Status: Acute (3) Crushing injury of toe with foot, right: Status: Acute Qualifiers: Encounter type: subsequent encounter Qualified Code(s): S97.81XD - Crushing injury of right foot, subsequent encounter; S97.101D - Crushing injury of unspecified right toe(s), subsequent encounter Reason for Visit Reason for Visit: CRUSHED TOE Hospital Course Hospital Course Ricky Fields is a 62 year old male with PMH HTN, DM, does not take any treatment presenting with crush injury to his foot while at [facility] when a pallet of beverages landed on his right third toe degloving the plantar tuft with exposed tendon and bone and a comminuted fracture of the distal phalanx. No other injuries noted. X ray of the foot?Comminuted, mildly displaced right 3rd toe distal phalanx tuft regionfracture. he is planned for surgical repiar with podiatry. Hospitalist called for admission in view of other medical comorbidities.Denies? current? chest pain, dyspnea, palpitations, syncope. He was admitted to the hospital further evaluation and management. Podiatry was consulted and he underwent complex repair full-thickness laceration down to bone right third toe with Dr. Monahan. He tolerated the procedure well. He was found to have uncontrolled hypertension and diabetes with A1c of more than 11. Multiple medication changes were done. New PCP appointment has been set up. Has been discharged in hemodynamically stable condition on oral Coreg and lisinopril for high blood pressure, Lantus nightly along with Januvia for diabetes. He is to take atorvastatin at night for dyslipidemia. He is to check his blood pressure and blood sugar daily and maintain a diary and follow-up with her primary care provider on set appointment for further adjustment of medications as needed. Cues to limit weightbearing as per podiatry. Boot has been fixed for him. He is to take Augmentin and Levaquin which are the antibiotics for next 5 days. Discharge plan were discussed in detail with the patient and he verbalized understanding and is agreeable. Discharge Data Studies Completed and Pending Completed Studies During Hospitalization Category Date Time Status XR foot RT min 3V* [id number] Stat Exams 09/26/22 03:05 Completed CV echo complete* [id number] Routine Ultrasound 09/26/22 09:02 Completed Pending at discharge Category Date Time Status MRSA by PCR Routine Lab 09/26/22 09:02 Ordered Vancomycin Trough Timed Lab 09/27/22 18:30 Ordered Radiology Impressions Foot X-Ray 09/26/22 03:05 IMPRESSION: Comminuted, mildly displaced right 3rd toe distal phalanx tuft region fracture, as noted above. Associated adjacent soft tissue irregularity and swelling. Recommend correlation with clinical findings of open fracture. Laboratory Results WBC 7.0 10^3/uL (4.0-10.0) 09/27/22 04:15 RBC 4.52 10^6/uL (4.1-5.3) 09/27/22 04:15 Hgb 13.6 g/dL (11.7-16.6) 09/27/22 04:15 Hct 41.0 % (42.0-52.0) L 09/27/22 04:15 MCV 90.7 fl (80-94) 09/27/22 04:15 MCH 30.1 pg (28.0-34.0) 09/27/22 04:15 MCHC 33.2 g/dL (30.0-36.0) 09/27/22 04:15 RDW 13.2 % (12.1-15.1) 09/27/22 04:15 Plt Count 229 10^3/cmm (130-400) 09/27/22 04:15 MPV 11.1 fL (7.4-10.4) H 09/27/22 04:15 Neut % (Auto) 67.9 % 09/27/22 04:15 Lymph % (Auto) 17.7 % 09/27/22 04:15 Gallia % (Auto) 10.3 % 09/27/22 04:15 Eos % (Auto) 3.4 % 09/27/22 04:15 Baso % (Auto) 0.4 % 09/27/22 04:15 Neut # (Auto) 4.74 10^3/uL (1.8-7.7) 09/27/22 04:15 Lymph # (Auto) 1.2 10^3/uL (0.8-4.8) 09/27/22 04:15 Gallia # (Auto) 0.7 10^3/uL (0.2-0.9) 09/27/22 04:15 Eos # (Auto) 0.2 10^3/uL (0.0-0.8) 09/27/22 04:15 Baso # (Auto) 0.0 10^3/uL (0.0-0.1) 09/27/22 04:15 Nucleated RBC % (auto) 0 % 09/27/22 04:15 Nucleated RBCs # 0.0 /100WBC 09/27/22 04:15 Sodium 137 mmol/L (136-145) 09/27/22 04:15 Potassium 4.1 mmol/L (3.5-5.1) 09/27/22 04:15 Chloride 104 mmol/L (98-107) 09/27/22 04:15 Carbon Dioxide 25 mmol/L (22-29) 09/27/22 04:15 Anion Gap 12.1 (5-19) 09/27/22 04:15 BUN 9 mg/dL (8-23) 09/27/22 04:15 Creatinine 0.7 mg/dL (0.7-1.2) 09/27/22 04:15 GFR Calculation 114.6 mL/min (90-130) 09/27/22 04:15 Glucose 239 mg/dL (65-115) H 09/27/22 04:15 POC Glucose 274 mg/dL (70-110) H 09/27/22 06:39 Estimat Average Glucose 278 09/26/22 03:38 Hemoglobin A1c 11.3 % (4.0-6.0) H 09/26/22 03:38 Calculated Osmolality 290 mOsm/kg (285-295) 09/27/22 04:15 Calcium 8.2 mg/dL (8.5-10.5) L 09/27/22 04:15 Magnesium 1.7 mg/dL (1.7-2.3) 09/27/22 04:15 Iron 37 ug/dL (59-158) L 09/26/22 03:38 TIBC 248 mcg/dl 09/26/22 03:38 % Saturation 14.9 % (20-50) L 09/26/22 03:38 Unsat Iron Binding 211 ug/dL (112-347) 09/26/22 03:38 Total Bilirubin 0.6 mg/dL (0.15-1.2) 09/27/22 04:15 AST 12 U/L (0-40) 09/27/22 04:15 ALT 15 U/L (0-41) 09/27/22 04:15 Alkaline Phosphatase 116 U/L (40-130) 09/27/22 04:15 Total Protein 6.1 g/dL (6.6-8.7) L 09/27/22 04:15 Albumin 3.4 g/dL (3.5-5.2) L 09/27/22 04:15 Globulin 2.7 g/dL (1.3-4.6) 09/27/22 04:15 Triglycerides 239 mg/dL (0-150) H 09/26/22 03:38 Cholesterol 146 mg/dL (0-200) 09/26/22 03:38 LDL Cholesterol, Calc 65 mg/dL (50-129) 09/26/22 03:38 HDL Cholesterol 33 mg/dL (60-100) L 09/26/22 03:38 LDL/HDL Ratio 1.97 RATIO (0.00-3.22) 09/26/22 03:38 Cholesterol/HDL Ratio 4.42 mg/dL (1.0-5.00) 09/26/22 03:38 Vitamin B12 353 pg/mL (232-1245) 09/26/22 03:38 Folate 5.6 ng/mL (4.5-32.2) 09/26/22 03:38 Procalcitonin 0.06 ng/mL (0-0.5) 09/26/22 03:38 TSH 3.41 uIU/mL (0.27-4.20) 09/26/22 03:38 Vitals Last Vital Signs Temp 98.2 F 09/27/22 07:59 Pulse 71 09/27/22 07:59 Resp 18 09/27/22 07:59 BP 151/78 09/27/22 07:59 Pulse Ox 91 09/27/22 07:59 O2 Del Method 09/27/22 07:59 O2 Flow Rate 6 09/26/22 10:30 Discharge Plan Discharge Patient Disposition: Home Condition: Stable Prescriptions: New atorvastatin 40 mg Tablet 20 mg PO BEDTIME 90 Days Qty: 90 0RF carvedilol 3.125 mg Tablet 3.125 mg PO BID 90 Days Qty: 180 0RF Januvia 100 mg tablet 100 mg PO DAILY Qty: 90 0RF Lantus Solostar U-100 Insulin 100 unit/mL (3 mL) insulin pen 20 unit SUBCUT QPM 90 Days Qty: 18 0RF Augmentin 500-125 mg tablet 1 tab PO Q12H Qty: 10 0RF levofloxacin 500 mg tablet 500 mg PO Q24H 5 Days Qty: 5 0RF lisinopril 10 mg tablet 10 mg PO DAILY Qty: 90 0RF Discharge Orders: Discharge Order (Routine); Ordered 09/27/22 Ordered By: Ren Evans Referrals: Jimbo Monahan DPM [Physician] - 10/03/22 4:00 pm Sofia Mcintosh MD [Physician] - 11/26/22 2:00 pm Discharge Diet: Cardiac and Diabetic Discharge Activity: Resume usual activity and Increase activity as tolerated Patient Instructions: Type 2 Diabetes, Chronic Hypertension (DC), Incision and Drainage (DC), Opioid Safety Activity Restrictions/Additional Instructions: You are on multiple new medications. You are on 2 medications for high blood pressure. You are supposed to take Coreg twice daily and lisinopril once daily. For diabetes you will be on Lantus at night along with oral tablets Januvia. You will also be on a cholesterol pill called atorvastatin every night. Please check your blood pressure and blood sugars daily and maintain a blood pressure and sugar diary and follow-up with your primary care provider on set appointment for further adjustment of medications. Please try to check your blood sugars at least once daily at fasting when you wake up. Please check your blood pressures twice daily. Goal blood pressures less than 140/90 mmHg. You will be on 2 antibiotics Augmentin and Levaquin for next 5 days. At home care instructions from Dr. Monahan: * Please keep your current surgical dressing clean, dry and intact until your follow-up visit in podiatry clinic with Dr. Monahan scheduled to October 03, 2022 at 4:00 PM. * Please contact Dr. Monahan's clinic to be seen sooner should you have strikethrough bleeding at your dressing or any other concerns. * Please elevate your right foot while resting * Please remain nonweightbearing to right lower extremity, you may heel touch for short transfers with the cam boot to your right lower extremity. Discharge Attestations Time Spent in Discharge Care*: greater than 30 min Specific Discharge Activities: educating patient, discussing with pcp/other providers, discussing with outsole caser/social workers/dc planners, documenting/other paperwork and evaluating patient/reviewing data Status at Discharge: Cognitive status at discharge: cognitively intact , Behavioral status at discharge: cooperative , Functional status at discharge: uses cane/walker , Overall status at discharge: patient is progressing back to baseline Quality Metrics Clinical Quality Measures [ No reported AMI, CVA or VTE this stay] Coding Level of Care Code Acute [facility] FW DC note Diagnoses Open fracture of toe S92.534D Encounter type: subsequent encounter Fracture alignment: nondisplaced Fracture healing: with routine healing Laterality: right Phalanx: distal Toe: lesser toe Diabetic peripheral neuropathy associated with type 2 diabetes mellitus E11.42 Crushing injury of toe with foot, right S97.81XD; S97.101D Encounter type: subsequent encounter
--- NOTE | 2022-09-27 10:00 | PC.CHAP ---
Pastoral Care Encounter/Spiritual Assessment Type of Contact [] Declined funding analyst visit [] Patient/Family/Request visit [] Outpatient visit [] Follow-up visit [] Physician referral [] Code/Alert [x] Routine visit [] Staff referral [] Actively dying [] Patient sleeping [] Family support [] [] Out of room [] Palliative care [] [] Receiving care in room [] Pre-surgical visit [] Trauma [] Long length of stay [] ICU visit [] Other: Relational/Emotional Strength [] Patient feels connected with others/family/visitors/staff [] Distress [] Loneliness/isolation [] Abandonment Spirituality of Patient [x] Person of [place] [] Attends Orthodox of their [place] [x] Believes in Prayer [] Reads Bible or Spiritism materials [x] There are Spiritual issues to be addressed Circulation Supervisor Interventions [x] Prayer [x] Active listening [] Non-anxious presence [] Spiritual/emotional support [] Crisis/trauma care [] Spiritual counseling [] Bereavement support [] Provided bereavement packet [] Provided Bible/devotional materials [] Provided toy/stuffed animal, coloring book to patient or family member [] Provided Communion [] Anointing/[place] [] Salvation [x] Completed spiritual assessment [] Other: Impact on Illness or Injury [] Angry [] Fearful [] Anxious [] Often cries [] Exhaustion [] Unable to work [] Unable to attend rastafari [] Unable to walk/stand [] Unable to read [] Unable to drive [] Unable to eat/drink [] Unable to sleep [] Unable to be with family [] Patient intubated [] Other: Summary Time spent with patient 5 min
[2022-09-27 10:51] LABS: Glucose Point of Care 228 mg/dL (70-110)
[2022-09-27] MEDS: acetaminophen 325 mg Tablet 650 MG PO (11:44)
[2022-09-27 12:00] VITALS: BP 146/79; PULSE 75; RESP 18; TEMP 36.5; O2SAT 94
--- NOTE | 2022-09-27 14:35 | PC.NURSE ---
1150 discharge instructions given to patient and family both voiced understanding. 1200 patient taken to private car per patient.s son. patient in stable condition. meds given to patient per pharmacy.
== END 2022-09-27 12:00 | disposition home or self-care (01) | DRG 502 ==
LOC: ER 03:44 → MEDSURG 04:20
PROVIDERS: Podiatrist Foot & Ankle Surgery; Admitting Provider Student in an Organized Health Care Education/Training Program; Emergency Provider Emergency Medicine; Visit Provider Student in an Organized Health Care Education/Training Program
PROC: 0QDQ0ZZ Extraction of Right Toe Phalanx, Open Approach (ICD-10-PCS; 2022-09-26 09:30)
DX: S92.534B Nondisplaced fracture of distal phalanx of right lesser toe(s), initial encounter for open fracture (principal); W23.1XXA Caught, crushed, jammed, or pinched between stationary objects, initial encounter; Y93.89 Activity, other specified; Y92.512 Supermarket, store or market as the place of occurrence of the external cause; Y99.0 Civilian activity done for income or pay; E11.65 Type 2 diabetes mellitus with hyperglycemia; E11.42 Type 2 diabetes mellitus with diabetic polyneuropathy; Z91.128 Patient's intentional underdosing of medication regimen for other reason; I10 Essential (primary) hypertension; E78.5 Hyperlipidemia, unspecified
CPT/HCPCS: 36415; 36416; 73630; 80048; 80053; 80061; 82607; 82746; 82962; 83036; 83540; 83550; 83735; 84145; 84443; 85025; 87641; 93306; 96372; 97760; 99285; J0360; J0690; J1650; J1815; J2270; J2405; J2543; J2704; J3370; J3490; J7030; L4361

== ENCOUNTER → 2022-10-02 14:20 | Outpatient (BNVA) | payer OTHER, BC, SELFPAY | PROVIDERS: Visit Provider Podiatrist Foot & Ankle Surgery | DX: S97.81XD Crushing injury of right foot, subsequent encounter (principal); S97.1 Crushing injury of toe; S92.534D Nondisplaced fracture of distal phalanx of right lesser toe(s), subsequent encounter for fracture with routine healing; E11.42 Type 2 diabetes mellitus with diabetic polyneuropathy; X58.XXXD Exposure to other specified factors, subsequent encounter; Z79.4 Long term (current) use of insulin | CPT/HCPCS: 73630 ==

== ENCOUNTER → 2022-10-09 14:33 | Outpatient (BNVA) | payer OTHER, BC, SELFPAY | PROVIDERS: Visit Provider Podiatrist Foot & Ankle Surgery | DX: S97.81XD Crushing injury of right foot, subsequent encounter (principal); S97.111D Crushing injury of right great toe, subsequent encounter; S92.534D Nondisplaced fracture of distal phalanx of right lesser toe(s), subsequent encounter for fracture with routine healing; W24.0XXD Contact with lifting devices, not elsewhere classified, subsequent encounter; E11.42 Type 2 diabetes mellitus with diabetic polyneuropathy; Z79.4 Long term (current) use of insulin; Y99.0 Civilian activity done for income or pay | CPT/HCPCS: 73630 ==

== ENCOUNTER → 2022-10-17 12:48 | Outpatient (BNVA) | payer OTHER, SELFPAY | PROVIDERS: Visit Provider Podiatrist Foot & Ankle Surgery | DX: S97.81XD Crushing injury of right foot, subsequent encounter (principal); S97.1 Crushing injury of toe; S92.534D Nondisplaced fracture of distal phalanx of right lesser toe(s), subsequent encounter for fracture with routine healing; E11.42 Type 2 diabetes mellitus with diabetic polyneuropathy; Z79.4 Long term (current) use of insulin; W24.0XXD Contact with lifting devices, not elsewhere classified, subsequent encounter; Y99.0 Civilian activity done for income or pay | CPT/HCPCS: 73630 ==

== ENCOUNTER → 2022-11-14 11:13 | Outpatient (BNVA) | payer OTHER, SELFPAY | PROVIDERS: Visit Provider Podiatrist Foot & Ankle Surgery | DX: E11.621 Type 2 diabetes mellitus with foot ulcer (principal); L97.522 Non-pressure chronic ulcer of other part of left foot with fat layer exposed; S97.121D Crushing injury of right lesser toe(s), subsequent encounter; S92.534D Nondisplaced fracture of distal phalanx of right lesser toe(s), subsequent encounter for fracture with routine healing; E11.42 Type 2 diabetes mellitus with diabetic polyneuropathy; Z79.4 Long term (current) use of insulin; X58.XXXD Exposure to other specified factors, subsequent encounter | CPT/HCPCS: 73630 ==

== ENCOUNTER → 2022-11-28 13:42 | Outpatient (BNVA) | payer OTHER, SELFPAY | PROVIDERS: PCP Family Medicine; Visit Provider Podiatrist Foot & Ankle Surgery | DX: S97.81XD Crushing injury of right foot, subsequent encounter (principal); S97.121D Crushing injury of right lesser toe(s), subsequent encounter; S92.534D Nondisplaced fracture of distal phalanx of right lesser toe(s), subsequent encounter for fracture with routine healing; E11.42 Type 2 diabetes mellitus with diabetic polyneuropathy; Z79.4 Long term (current) use of insulin; W31.89XD Contact with other specified machinery, subsequent encounter | CPT/HCPCS: 73630 ==

== ENCOUNTER → 2022-12-23 14:17 | Outpatient (BNVA) | payer BC, SELFPAY | PROVIDERS: PCP Family Medicine; Visit Provider Family Medicine | DX: I10 Essential (primary) hypertension (principal); E11.65 Type 2 diabetes mellitus with hyperglycemia; Z79.4 Long term (current) use of insulin | CPT/HCPCS: 80048; 83036 ==

== ENCOUNTER → 2023-03-18 13:48 | Outpatient (BNVA) | payer BC, SELFPAY | PROVIDERS: PCP Family Medicine; Visit Provider Family Medicine | DX: E56.9 Vitamin deficiency, unspecified (principal); E11.65 Type 2 diabetes mellitus with hyperglycemia; Z79.4 Long term (current) use of insulin | CPT/HCPCS: 80048; 82652; 83036 ==

== ENCOUNTER → 2023-06-30 08:47 | Outpatient (BNVA) | payer BC, SELFPAY | PROVIDERS: PCP Family Medicine; Visit Provider Family Medicine | DX: E11.9 Type 2 diabetes mellitus without complications (principal); E11.65 Type 2 diabetes mellitus with hyperglycemia; Z79.4 Long term (current) use of insulin; I10 Essential (primary) hypertension | CPT/HCPCS: 80048; 83036 ==

== ENCOUNTER → 2023-11-14 14:42 | Outpatient (BNVA) | payer BC, SELFPAY | PROVIDERS: PCP Family Medicine; Visit Provider Emergency Medicine | DX: N23 Unspecified renal colic (principal) | CPT/HCPCS: 81000 ==

== ENCOUNTER → 2023-12-08 10:07 | Outpatient (BNVA) | payer BC, SELFPAY | PROVIDERS: PCP Family Medicine; Visit Provider Family Medicine | DX: I10 Essential (primary) hypertension (principal); E78.2 Mixed hyperlipidemia; E11.65 Type 2 diabetes mellitus with hyperglycemia; Z79.4 Long term (current) use of insulin | CPT/HCPCS: 80053; 80061; 83036 ==

== ENCOUNTER → 2023-12-12 08:27 | Outpatient (BNVA) | payer BC, SELFPAY | PROVIDERS: PCP Family Medicine; Referring Provider Family Medicine; Visit Provider Family Medicine | DX: M17.12 Unilateral primary osteoarthritis, left knee (principal) | CPT/HCPCS: 73562 ==

== ENCOUNTER 2024-06-20 09:54 | Emergency (ER) | payer BC, SELFPAY ==
--- NOTE | 2024-06-20 09:56 | XRR_ITS ---
PROCEDURE INFORMATION: Exam: XR Abdomen Exam date and time: 06/20/2024 10:10 AM Age: 63 years old Clinical indication: Bloating and constipation TECHNIQUE: Imaging protocol: Radiologic exam of the abdomen. Views: Frontal supine view of the abdomen. 1 View. COMPARISON: No relevant prior studies available. FINDINGS: Gastrointestinal tract: Normal. No bowel dilation. Bones/joints: Unremarkable. XR/XR abdomen 1V* [id number] IMPRESSION: No acute findings.
[2024-06-20 09:58] VITALS: BP 208/116; PULSE 85; RESP 17; TEMP 36.5; O2SAT 95; BMI 38.7
--- NOTE | 2024-06-20 10:11 | W.ED.MALEGU ---
HPI - Male Genitourinary General: Chief complaint: Urogenital-Male Stated complaint: constipated, unable to pee Time Seen by Provider: 06/20/24 09:56 History of Present Illness: 63-year-old male with history of obesity and diabetes, hyperlipidemia and hypertension who presents to the emergency room with constipation and urinary retention. He has not urinated since last night, at least 1214 hrs. ago. He is standing leaned over the bed and considerable pain secondary to the urinary retention. He says he has not had intermittent constipation for the last couple of weeks. He also notes he has prostate issues. No fevers. No nausea or vomiting. No altered mental status. No chest pain. No shortness of breath. Related Data Previous Rx's Medication Instructions Recorded mupirocin 2 % topical ointment 1 applic topical BID #22 grams 11/29/22 alcohol swabs 1 pad topical TID PRN as needed to 12/23/22 check blood sugar 30 days #100 ea blood-glucose meter (Blood Glucose #1 ea 12/23/22 Monitoring kit) lancets #100 ea 12/23/22 blood sugar diagnostic (Blood #50 ea 01/03/23 Glucose Test strips) atorvastatin 20 mg tablet 20 mg PO BEDTIME 90 days #90 tabs 09/08/23 Diabetic Shoes with 3 sets of #1 ea 12/23/23 insoles carvedilol 3.125 mg tablet 3.125 mg PO BID 90 days #180 tabs 03/23/24 glipizide 10 mg tablet, extended 10 mg PO DAILY 90 days #90 tabs 03/23/24 release 24 hr insulin glargine 100 unit/mL (3 20 unit (0.2 mL) SUBCUT QPM 90 03/23/24 mL) subcutaneous pen (Lantus days #18 mL Solostar U-100 Insulin) lisinopril 40 mg tablet 40 mg PO DAILY 90 days #90 tabs 03/23/24 omeprazole 40 mg capsule,delayed 40 mg PO DAILY 90 days #90 caps 03/23/24 release sitagliptin phosphate 100 mg 100 mg PO DAILY 30 days #30 tabs 03/23/24 tablet (Januvia) cephalexin 500 mg capsule 500 mg PO BID 5 days #10 caps 06/20/24 polyethylene glycol 3350 17 17 g PO DAILY #510 grams 10/20/24 gram/dose oral powder (Miralax) tamsulosin 0.4 mg capsule (Flomax) 0.4 mg PO DAILY #30 caps 06/20/24 Allergies Allergy/AdvReac Type Severity Reaction Status Date / Time No Known Allergies Allergy Verified 06/20/24 10:02 Review of Systems Narrative: Constitutional symptoms: Negative except as documented in HPI. Skin symptoms: Negative except as documented in HPI. Eye symptoms: Negative except as documented in HPI. ENMT symptoms: Negative except as documented in HPI. Respiratory symptoms: Negative except as documented in HPI. Cardiovascular symptoms: Negative except as documented in HPI. Gastrointestinal symptoms: Negative except as documented in HPI. Genitourinary symptoms: Negative except as documented in HPI. Musculoskeletal symptoms: Negative except as documented in HPI. Neurologic symptoms: Negative except as documented in HPI. Psychiatric symptoms: Negative except as documented in HPI. Endocrine symptoms: Negative except as documented in HPI. PFSH ED PFSH: Medical History Peripheral vascular disease due to secondary diabetes Diabetes Metformin intolerance Social History Smoking and tobacco/nicotine status: former use of tobacco/nicotine Substance/Drug Use: never Physical Exam Narrative: EXAM NARRATIVE: General: Alert, patient is standing leaning over the bed with his arms on the bed in considerable pain from urinary retention. Skin: Warm, dry. Head: Normocephalic, atraumatic. Neck: Supple, trachea midline. Eye: Extraocular movements are intact. Ears, nose, mouth and throat: mucosa moist. Cardiovascular: Regular, Normal peripheral perfusion. Respiratory: Lungs are clear to auscultation, respirations are non-labored, breath sounds are equal, Symmetrical chest wall expansion. Gastrointestinal: Soft, suprapubic tenderness Musculoskeletal: Normal ROM, no deformity. Neurological: Alert and oriented, No focal neurological deficit observed. Psychiatric: Cooperative, appropriate mood & affect. Course Vital Signs: Vital signs: Vital Signs Temperature 97.7 F 06/20/24 09:58 Pulse Rate 85 06/20/24 09:58 Respiratory Rate 17 06/20/24 09:58 Blood Pressure 208/116 06/20/24 09:58 Pulse Oximetry 95 06/20/24 09:58 Oxygen Delivery Me thod Room Air 06/20/24 09:58 MDM - Male Medical Decision Making Medical decision making: Differential diagnosis including but not limited to and based on the above HPI, review of systems and physical exam: Patient with urinary retention most likely. Sesay being placed. Checking for urinary tract infection. Also would have concern for renal failure with this. X-ray to evaluate for constipation. Orders placed to evaluate differential diagnosis based on the above differential, HPI and physical exam Sesay catheter was placed and about a liter of urine out thus far. Abdomen x-ray: Nonspecific bowel gas pattern. No evidence of free air or obstruction. This was reviewed and interpreted by myself the emergency room physician. Lab Review: Laboratory results were reviewed and interpreted by myself the emergency room physician. No leukocytosis. No anemia. BUN and creatinine are 18 and 1.0. Urine does not appear infected at this time. I reviewed the patient's medical record. Reexamination: Patient appears much more relaxed. He is sleeping whenever I come in the room. We discussed follow-up with urology to have the catheter removed. Placing him on Flomax and prophylactic Keflex Consultation: I spoke with Dr. Wells with urology at [place] who will follow with the patient next week in clinic. Assessment and plan: Urinary retention ? Sesay catheter placed. First dose Keflex and Flomax here in the emergency room. - Discharged home - Discussed plan with patient. Answered any questions. - Evaluation and treatment of this problem were appropriate in the emergency setting. Lab Data 06/20/24 10:09 06/20/24 10:09 Laboratory Results WBC 9.84 10^3/uL (3.29-11.43) 06/20/24 10:09 RBC 5.55 10^6/uL (3.85-5.65) 06/20/24 10:09 Hgb 16.30 g/dL (11.27-16.99) 06/20/24 10:09 Hct 48.6 % (37-53) 06/20/24 10:09 MCV 87.6 fl (82-101) 06/20/24 10:09 MCH 29.4 pg (27-33) 06/20/24 10:09 MCHC 33.5 g/dL (30-55) 06/20/24 10:09 RDW 13.5 % (12.1-15.1) 06/20/24 10:09 Plt Count 257 10^3/cmm (157-399) 06/20/24 10:09 MPV 10.7 fL (7.4-10.4) H 06/20/24 10:09 Neut % (Auto) 81.5 % 06/20/24 10:09 Lymph % (Auto) 10.9 % 06/20/24 10:09 [place] % (Auto) 5.6 % 06/20/24 10:09 Eos % (Auto) 1.3 % 06/20/24 10:09 Baso % (Auto) 0.4 % 06/20/24 10:09 Neut # (Auto) 8.02 10^3/uL (1.8-7.7) H 06/20/24 10:09 Lymph # (Auto) 1.1 10^3/uL (0.8-4.8) 06/20/24 10:09 [place] # (Auto) 0.6 10^3/uL (0.2-0.9) 06/20/24 10:09 Eos # (Auto) 0.1 10^3/uL (0.0-0.8) 06/20/24 10:09 Baso # (Auto) 0.0 10^3/uL (0.0-0.1) 06/20/24 10:09 Nucleated RBC % (auto) 0 % 06/20/24 10:09 Nucleated RBCs # 0.0 /100WBC 06/20/24 10:09 Sodium 138 mmol/L (136-145) 06/20/24 10:09 Potassium 4.8 mmol/L (3.5-5.1) 06/20/24 10:09 Chloride 105 mmol/L (98-107) 06/20/24 10:09 Carbon Dioxide 23 mmol/L (22-29) 06/20/24 10:09 Anion Gap 14.8 (5-19) 06/20/24 10:09 BUN 18 mg/dL (8-23) 06/20/24 10:09 Creatinine 1.0 mg/dL (0.7-1.2) 06/20/24 10:09 GFR Calculation 75.7 mL/min (90-130) L 06/20/24 10:09 Glucose 180 mg/dL (65-115) H 06/20/24 10:09 Calculated Osmolality 292 mOsm/kg (285-295) 06/20/24 10:09 Calcium 9.0 mg/dL (8.5-10.5) 06/20/24 10:09 Total Bilirubin 0.7 mg/dL (0.15-1.2) 06/20/24 10:09 AST 24 U/L (0-40) 06/20/24 10:09 ALT 23 U/L (0-41) 06/20/24 10:09 Alkaline Phosphatase 111 U/L (40-130) 06/20/24 10:09 Total Protein 7.6 g/dL (6.6-8.7) 06/20/24 10:09 Albumin 4.5 g/dL (3.5-5.2) 06/20/24 10:09 Globulin 3.1 g/dL (1.3-4.6) 06/20/24 10:09 Urine Color Yellow (Yellow) 06/20/24 10:34 Urine Appearance Clear (CLEAR) 06/20/24 10:34 Urine pH 6.0 (5-7) 06/20/24 10:34 Ur Specific [place] 1.022 (1.005-1.030) 06/20/24 10:34 Urine Protein Trace (Negative) A 06/20/24 10:34 Urine Glucose (UA) Negative (Normal) 06/20/24 10:34 Urine Ketones Negative (Negative) 06/20/24 10:34 Urine Blood 1+ (Negative) A 06/20/24 10:34 Urine Nitrate Negative (Negative) 06/20/24 10:34 Urine Bilirubin Negative (Negative) 06/20/24 10:34 Urine Urobilinogen 1.0 mg/dL (Negative) 06/20/24 10:34 Ur Leukocyte Esterase Negative (Negative) 06/20/24 10:34 Urine RBC 11-20 /hpf (0-2) H 06/20/24 10:34 Urine WBC 0-5 /hpf (0-5) 06/20/24 10:34 Ur Squamous Epith Cells 0-5 /hpf (0-5) 06/20/24 10:34 Amorphous Sediment Not Reportable 06/20/24 10:34 Urine Bacteria None seen /hpf (NONE) 06/20/24 10:34 Hyaline Casts 0-4 /lpf H 06/20/24 10:34 XR interpretation done by ED provider, pending radiology final review Discharge Plan Discharge Patient Disposition: Home Clinical Impression: Urinary retention, Constipation Condition: Stable Prescriptions: New tamsulosin [Flomax] 0.4 mg capsule 0.4 mg PO DAILY Qty: 30 0RF cephalexin 500 mg capsule 500 mg PO BID 5 Days Qty: 10 0RF polyethylene glycol 3350 [Miralax] 17 gram/dose powder 17 g PO DAILY Qty: 510 0RF Rx Instructions: Take 1-2 scoops daily for the next 3 months to keep stools soft No Action atorvastatin 20 mg tablet 20 mg PO BEDTIME 90 Days Qty: 90 3RF carvedilol 3.125 mg tablet 3.125 mg PO BID 90 Days Qty: 180 2RF glipizide 10 mg tablet extended release 24hr 10 mg PO DAILY 90 Days Qty: 90 2RF Lantus Solostar U-100 Insulin 100 unit/mL (3 mL) insulin pen 20 unit SUBCUT QPM 90 Days Qty: 18 6RF lisinopril 40 mg tablet 40 mg PO DAILY 90 Days Qty: 90 2RF omeprazole 40 mg capsule,delayed release(DR/EC) 40 mg PO DAILY 90 Days Qty: 90 2RF Januvia 100 mg tablet 100 mg PO DAILY 30 Days Qty: 30 6RF Rx Instructions: 340B alcohol swabs Pads, Medicated 1 pad topical TID PRN (Reason: as needed to check blood sugar) 30 Days Qty: 100 11RF (DME) lancets Misc See Rx Instructions .ROUTE .MEDSUPPLY Qty: 100 11RF Rx Instructions: For use with glucose meter, brand/type per insurance (DME) blood-glucose meter [Blood Glucose Monitoring] Kit See Rx Instructions .ROUTE .MEDSUPPLY Qty: 1 0RF Rx Instructions: Brand/type per insurance coverage (DME) Diabetic Shoes with 3 sets of insoles See Rx Instructions .Route .MEDSUPPLY Qty: 1 0RF Rx Instructions: As directed by HOME mupirocin 2 % ointment 1 applic topical BID Qty: 22 2RF (DME) Blood Glucose Test Strip See Rx Instructions .ROUTE .MEDSUPPLY Qty: 50 11RF Rx Instructions: Use to test blood sugar once daily Discharge Orders: Discharge ED (Routine); Ordered 06/20/24 Ordered By: Deana Walter Referrals: Joni Wells [Referring] - 1-3 days (Please call for follow-up appointment) Sofia Mcintosh MD [Primary Care Provider] - Discharge Diet: Usual diet Discharge Activity: Increase activity as tolerated Patient Instructions: Sesay Catheter Placement and Care (ED), How to Change a Catheter Drainage Bag (DC) Activity Restrictions/Additional Instructions: Thank you for choosing [facility] for your healthcare needs today. Please realize this is an emergency room and that we are providing you with a medical screening exam and this may not be complete and all inclusive of all the testing and or work up that you may need to determine your ailment or severity of your illness. You have been screened and evaluated and felt safe for discharge. Health conditions do change or evolve sometimes and as such it is important that you follow up with your Primary Doctor to be re checked, 3-5 days is a general good time frame for follow up. You are always welcome to return to the ED for re assessment if your symptoms are worsening or you have new concerns Coding Level of Care Code ED [employer]ic for Audie Santizo
[2024-06-20 10:18] LABS: Basophils % 0.4 %; Eosinophils # 0.1 10^3/uL (0.0-0.8); Eosinophils % 1.3 %; Hematocrit 48.6 % (37-53); Lymphocytes # 1.1 10^3/uL (0.8-4.8); Lymphocytes % 10.9 %; Mean Corpuscular HGB Conc 33.5 g/dL (30-55); Mean Corpuscular Hemoglobin 29.4 pg (27-33); Mean Corpuscular Volume 87.6 fl (82-101); Mean Platelet Volume 10.7 fL (7.4-10.4); Monocytes # 0.6 10^3/uL (0.2-0.9); Monocytes % 5.6 %; Neutrophils # 8.02 10^3/uL (1.8-7.7); Neutrophils % 81.5 %; Nucleated Red Blood Cells % 0 %; Platelet Count 257 10^3/cmm (157-399); Red Blood Count 5.55 10^6/uL (3.85-5.65); Red Cell Distribution Width 13.5 % (12.1-15.1); White Blood Count 9.84 10^3/uL (3.29-11.43)
[2024-06-20 10:35] LABS: Alanine Aminotransferase 23 U/L (0-41); Albumin Level 4.5 g/dL (3.5-5.2); Alkaline Phosphatase 111 U/L (40-130); Anion Gap 14.8 (5-19); Aspartate Amino Transferase 24 U/L (0-40); Blood Urea Nitrogen 18 mg/dL (8-23); Carbon Dioxide 23 mmol/L (22-29); Chloride 105 mmol/L (98-107); Creatinine Clr Calc Pharmacy 115.8577; Globulin 3.1 g/dL (1.3-4.6); Glomerular Filtration Rate 75.7 mL/min (90-130); Glucose 180 mg/dL (65-115); Osmolality Calculated 292 mOsm/kg (285-295); Potassium 4.8 mmol/L (3.5-5.1); Sodium 138 mmol/L (136-145); Total Bilirubin 0.7 mg/dL (0.15-1.2); Total Protein 7.6 g/dL (6.6-8.7)
[2024-06-20 11:02] LABS: Bilirubin Urine Negative (Negative); Blood Urine 1+ (Negative); Glucose Urine UA Negative (Normal); Ketones Urine Negative (Negative); Leukocyte Esterase Urine Negative (Negative); Nitrate Urine Negative (Negative); Protein Urine Trace (Negative); Specific Gravity, Urine 1.022 (1.005-1.030); Urine Appearance Clear (CLEAR); Urine Color Yellow (Yellow)
[2024-06-20 11:05] LABS: Bacteria Urine None Seen /hpf; Hyaline Casts Urine 0-4 /lpf; Squamous Epithelial Cell Urine 0-5 /hpf (0-5); WBC Urine 0-5 /hpf (0-5)
[2024-06-20 11:33] VITALS: PULSE 77; O2SAT 98
[2024-06-20] MEDS: magnesium citrate Btl 296 mL PO (11:38)
[2024-06-20] MEDS: tamsulosin 0.4 mg Capsule PO (11:38)
[2024-06-20] MEDS: cephALEXin 500 mg Capsule PO (11:38)
[2024-06-20 11:52] VITALS: BP 171/99; PULSE 80; O2SAT 98
== END 2024-06-20 11:55 | disposition home or self-care (01) ==
PROVIDERS: Emergency Provider Emergency Medicine; PCP Family Medicine
DX: K59.00 Constipation, unspecified (principal); R33.9 Retention of urine, unspecified; Z79.84 Long term (current) use of oral hypoglycemic drugs; Z79.4 Long term (current) use of insulin; E11.9 Type 2 diabetes mellitus without complications; Z87.891 Personal history of nicotine dependence
CPT/HCPCS: 36415; 51702; 74018; 80053; 81001; 85025; 99284

== ENCOUNTER → 2024-08-03 14:43 | Outpatient (BNVA) | payer BC, SELFPAY | PROVIDERS: PCP Family Medicine; Visit Provider Family Medicine | DX: E11.9 Type 2 diabetes mellitus without complications (principal); I10 Essential (primary) hypertension | CPT/HCPCS: 80053; 83036 ==

== ENCOUNTER 2024-10-09 03:36 | Emergency (ER) | payer BC, SELFPAY ==
[2024-10-09 03:52] VITALS: BP 187/77; PULSE 97; RESP 18; TEMP 36.6; O2SAT 100; BMI 36.8
--- NOTE | 2024-10-09 04:46 | W.ED.MALEGU ---
HPI - Male Genitourinary General: Chief complaint: Urogenital-Male Stated complaint: Cath is blocked Time Seen by Provider: 10/09/24 04:44 History of Present Illness: Patient presents to the ER stating his prostate swollen again his bladder is full and he is having urinary retention. Patient states he is coming multiple times before for this and sees a urologist. Last time he produced urine was sometime yesterday afternoon. Related Data Previous Rx's ?Medication ?Instructions ?Recorded mupirocin 2 % topical ointment 1 applic topical BID #22 grams 11/29/22 alcohol swabs 1 pad topical TID PRN as needed to 12/23/22 check blood sugar 30 days #100 ea blood-glucose meter (Blood Glucose #1 ea 12/23/22 Monitoring kit) lancets #100 ea 12/23/22 blood sugar diagnostic (Blood #50 ea 01/03/23 Glucose Test strips) Diabetic Shoes with 3 sets of #1 ea 12/23/23 insoles polyethylene glycol 3350 17 17 g PO DAILY #510 grams 06/20/24 gram/dose oral powder (Miralax) tamsulosin 0.4 mg capsule (Flomax) 0.4 mg PO DAILY #30 caps 06/20/24 atorvastatin 20 mg tablet 20 mg PO BEDTIME 90 days #90 tabs 08/03/24 carvedilol 3.125 mg tablet 3.125 mg PO BID 90 days #180 tabs 08/03/24 glipizide 10 mg tablet, extended 10 mg PO DAILY 90 days #90 tabs 08/03/24 release 24 hr lisinopril 40 mg tablet 40 mg PO DAILY 90 days #90 tabs 08/03/24 omeprazole 40 mg capsule,delayed 40 mg PO DAILY 90 days #90 caps 08/03/24 release sitagliptin phosphate 100 mg 100 mg PO DAILY 30 days #30 tabs 08/03/24 tablet (Januvia) Allergies Allergy/AdvReac Type Severity Reaction Status Date / Time No Known Allergies Allergy Verified 08/03/24 14:09 Review of Systems General: Reports: 10 or more systems reviewed and unremarkable except in HPI and below PFSH ED PFSH: Medical History Peripheral vascular disease due to secondary diabetes Diabetes Metformin intolerance Social History Smoking and tobacco/nicotine status: former use of tobacco/nicotine Substance/Drug Use: never Physical Exam Const: COMMON NORMALS: no acute distress, average body habitus, patient oriented x3, no limitations, healthy appearing, alert and well nourished Neck/C-Spine: COMMON NORMALS: no JVD Chest: COMMONS NORMALS: normal inspection of the chest and normal palpation of entire chest wall Resp: COMMON NORMALS: normal respiratory effort, No retractions, No use of accessory muscles and clear to auscultation bilaterally AUSCULTATION: clear to auscultation bilaterally Cardio: COMMON NORMALS: no JVD, regular rate, regular rhythm, S1 normal heart sound present, S2 normal heart sound present, No gallops present (Cardio), No clicks present (Cardio), No murmurs present (Cardio) and No rub (Cardio) RATE: regular rate RHYTHM: regular rhythm HEART SOUNDS: S1 normal heart sound present and S2 normal heart sound present GI: COMMON NORMALS: Normal to inspection, nondistended, normoactive bowel sounds present, Soft to palpation, No hepatosplenomegaly present and no masses; negative for non-tender (Tender to palpate over suprapubic region) PALPATION: Yes Soft to palpation and Yes No hepatosplenomegaly present Neuro: COMMON NORMALS: patient oriented x3 SENSORIUM/ORIENTATION: Yes alert Course Vital Signs: Vital signs: Vital Signs Temperature 98 F 10/09/24 03:52 Pulse Rate 97 10/09/24 03:52 Respiratory Rate 18 10/09/24 03:52 Blood Pressure 187/77 10/09/24 03:52 Pulse Oximetry 100 10/09/24 03:52 MDM - Male Medical Decision Making Sesay was placed without difficulty, urinalysis was obtained which was negative other than 11-20 red blood cells. Patient be discharged home with a Sesay in place and told to follow-up with his PCP within next 7 days. Medical Records I reviewed the patient's medical records. Lab Data I reviewed the patient's lab results. Laboratory Results Urine Color Yellow (Yellow) 10/09/24 05:03 Urine Appearance Clear (CLEAR) 10/09/24 05:03 Urine pH 5.5 (5-7) 10/09/24 05:03 Ur Specific [place] 1.012 (1.005-1.030) 10/09/24 05:03 Urine Protein Negative (Negative) 10/09/24 05:03 Urine Glucose (UA) Negative (Normal) 10/09/24 05:03 Urine Ketones Negative (Negative) 10/09/24 05:03 Urine Blood Non-haemolysed trace (Negative) 10/09/24 05:03 Urine Nitrate Negative (Negative) 10/09/24 05:03 Urine Bilirubin Negative (Negative) 10/09/24 05:03 Urine Urobilinogen 1.0 mg/dL (Negative) 10/09/24 05:03 Ur Leukocyte Esterase Negative (Negative) 10/09/24 05:03 Urine RBC 11-20 /hpf (0-2) H 10/09/24 05:03 Urine WBC 0-5 /hpf (0-5) 10/09/24 05:03 Ur Squamous Epith Cells 0-5 /hpf (0-5) 10/09/24 05:03 Amorphous Sediment Not Reportable 10/09/24 05:03 Urine Bacteria None seen /hpf (NONE) 10/09/24 05:03 Hyaline Casts 0-4 /lpf H 10/09/24 05:03 No radiology studies performed this visit Discharge Plan Discharge Patient Disposition: Home Clinical Impression: Acute urinary retention Condition: Stable Prescriptions: No Action alcohol swabs Pads, Medicated 1 pad topical TID PRN (Reason: as needed to check blood sugar) 30 Days Qty: 100 11RF (DME) lancets Misc See Rx Instructions .ROUTE .MEDSUPPLY Qty: 100 11RF Rx Instructions: For use with glucose meter, brand/type per insurance (DME) blood-glucose meter [Blood Glucose Monitoring] Kit See Rx Instructions .ROUTE .MEDSUPPLY Qty: 1 0RF Rx Instructions: Brand/type per insurance coverage (DME) Diabetic Shoes with 3 sets of insoles See Rx Instructions .Route .MEDSUPPLY Qty: 1 0RF Rx Instructions: As directed by HOME atorvastatin 20 mg tablet 20 mg PO BEDTIME 90 Days Qty: 90 3RF carvedilol 3.125 mg tablet 3.125 mg PO BID 90 Days Qty: 180 2RF glipizide 10 mg tablet extended release 24hr 10 mg PO DAILY 90 Days Qty: 90 2RF lisinopril 40 mg tablet 40 mg PO DAILY 90 Days Qty: 90 2RF omeprazole 40 mg capsule,delayed release(DR/EC) 40 mg PO DAILY 90 Days Qty: 90 2RF Januvia 100 mg tablet 100 mg PO DAILY 30 Days Qty: 30 6RF Rx Instructions: 340B mupirocin 2 % ointment 1 applic topical BID Qty: 22 2RF (DME) Blood Glucose Test Strip See Rx Instructions .ROUTE .MEDSUPPLY Qty: 50 11RF Rx Instructions: Use to test blood sugar once daily tamsulosin [Flomax] 0.4 mg capsule 0.4 mg PO DAILY Qty: 30 0RF polyethylene glycol 3350 [Miralax] 17 gram/dose powder 17 g PO DAILY Qty: 510 0RF Rx Instructions: Take 1-2 scoops daily for the next 3 months to keep stools soft Discharge Orders: Discharge ED (Routine); Ordered 10/09/24 Ordered By: Darinel Ramos Referrals: Sofia Mcintosh MD [Primary Care Provider] - 1 week Patient Instructions: Urinary Retention in Men (ED), Sesay Catheter Care Activity Restrictions/Additional Instructions: Sesay catheter was placed to help relieve your urinary retention. Urinalysis did not show any signs of infection. Please follow-up with your family practice physician within next 7 days for further evaluation and possible Sesay removal. If you have any problems or concerns please feel free to return to the ER. Print Language: Kinyarwanda Coding Level of Care Code ED Head Of Transport Logistics for Audie Santizo
[2024-10-09 05:20] LABS: Bilirubin Urine Negative (Negative); Blood Urine Non-haemolysed trace (Negative); Glucose Urine UA Negative (Normal); Ketones Urine Negative (Negative); Leukocyte Esterase Urine Negative (Negative); Nitrate Urine Negative (Negative); Protein Urine Negative (Negative); Specific Gravity, Urine 1.012 (1.005-1.030); Urine Appearance Clear (CLEAR); Urine Color Yellow (Yellow); pH Urine 5.5 (5-7)
[2024-10-09 05:22] LABS: Add Urine Microscopic? YES; Bacteria Urine None Seen /hpf; Hyaline Casts Urine 0-4 /lpf; Squamous Epithelial Cell Urine 0-5 /hpf (0-5); WBC Urine 0-5 /hpf (0-5)
[2024-10-09 05:31] LABS: Add Urine Culture? No
== END 2024-10-09 05:47 | disposition home or self-care (01) ==
PROVIDERS: Emergency Provider Emergency Medicine; PCP Family Medicine
DX: R33.8 Other retention of urine (principal); Z87.891 Personal history of nicotine dependence; E11.9 Type 2 diabetes mellitus without complications
CPT/HCPCS: 81001; 99283